=== PATIENT | female | born 1980 | race Caucasian/White ===

== ENCOUNTER 2017-07-14 15:23 | Emergency (ER) | payer OTHER ==
[~2017-07-14] VITALS: Ht 180.3 cm; Wt 88.5 kg
[2017-07-14 15:31] VITALS: BP 123/71; Ht 180.3 cm; Wt 88.5 kg
== END 2017-07-14 16:14 | disposition home or self-care (01) ==
LOC: ED 15:23
DX: J02.9 Acute pharyngitis, unspecified (principal)